=== PATIENT | male | born 1980 | race Caucasian/White ===

== ENCOUNTER 2024-11-22 09:54 | Emergency (ER) | payer BC, SELFPAY ==
--- OUTSIDE RECORDS SUMMARY | 2024-11-22 09:56 | XMS_ITS | Clinical Summary ---
Author Organization [facility] Address [address] [place] [id number] Care Team Providers Care Cable Splicer Assistant Name Role Phone Pcp, No Primary Care Provider Unavailabl e Allergies No known active allergies Medications multivitamin (CHEWABLE MULTI VITAMIN) chew Take 1 tablet by mouth once daily. 0 12/16/2013 Active Active Problems No known active problems Social History Tobacco Use Types Packs/Day Years Used Date Smoking Tobacco: Never Smokeless Tobacco: Never Alcohol Use Standard Drinks/Week Comments Not Asked 0 (1 standard drink = 0.6 oz pur e alcohol) Sex and Gender Information Value Date Recorded Sex Assigned at Not on file Legal Sex Male 1:22 PM CDT Gender Identity Not on file Sexual Orientation Not on file Obstetrics History Last Filed Vital Signs Vital Sign Reading Time Taken Comments Blood Pressure 120/82 12/07/2015 8:12 AM CDT Pulse 64 12/07/2015 8:12 AM CDT Temperature - - Respiratory Rate - - Oxygen Saturation - - Inhaled Oxygen Concentration - - Weight 85.6 kg (188 lb 11.2 oz) 12/07/2015 8:12 AM CDT Height 174.6 cm (5' 8.75) 12/07/2015 8:12 AM CD T Body Mass Index 28.07 12/07/2015 8:12 AM CDT Plan of Treatment Health Maintenance Due Date Last Done Comments Tetanus booster 1993 Depression screening for age 12+ 1994 HIV for age 15-65 1997 Hepatitis C screening for ag e 18-79 2000 Hepatitis B series for 19+ ( 1 of 3 - 19+ 3-dose series) 2001 HPV series for age 9-45 (1 - 3-dose SCDM series) 2009 BMI (ht and wt on same day) for age 18+ 12/06/2016 12/07/2015 Lipids for age 35-44 2017 COVID-19 vaccine series ( season) 2024 Influenza Vaccine (#1) 2024 RSV vaccine for adults or (1 - 1-dose 75+ series) 2057 Pneumococcal series for age 6-49 Aged Out No longer eligible based on patient's age to complete this topic Care Teams Cable Splicer Assistant Relationship Specialty Start Date End Date Pcp, No . PCP - General 11/18/13
[2024-11-22 10:01] VITALS: BP 125/86; PULSE 82; RESP 18; TEMP 36.8; O2SAT 99; BMI 27.5
--- NOTE | 2024-11-22 10:10 | ED_ITS ---
HPI - Skin/Abscess/Foreign Bdy General Date Seen: 11/22/24 Chief complaint: Skin/Abscess/Foreign Body Stated complaint: Cellulitis left elbow, not healing Source: patient Mode of arrival: ambulatory Limitations: no limitations History of Present Illness HPI narrative: Patient is a 43-year-old male presenting to emergency department for cellulitis around his left elbow. He 1st noticed it 5 days ago. Went to urgent care 2 days ago and was started on Keflex. Since then the area of erythema has ground. They were told to be re-evaluated if things are not getting better in a couple days. He denies fevers, chills, joint pain, fatigue. States all the pain seems to be located around the outside of the elbow. Has not noticed any swelling to the elbow. No other concerns noted. Related Data Previous Rx's ?Medication ?Instructions ?Recorded cephalexin 500 mg capsule 500 mg PO QID 7 days #28 cap s 11/20/24 sulfamethoxazole 800 1 tab PO Q12H #10 tabs 11/22 mg-trimethoprim 160 mg tablet (Bactrim DS) Allergies Allergy/AdvReac Type Severity Reaction Status Date / Time No Known Drug Allergies Allergy Verified 11/20/24 12:14 Review of Systems Narrative: Pertinent systems reviewed and were negative unless stated in HPI Exam Narrative: Exam Narrative: Const: Well-nourished, Well-developed, in mild distress Eyes: PERRL, no conjunctival injection, and symmetrical lids HENT: Atraumatic external nose and ears. Moist mucous membranes. MSK:Extremities w/o deformity, Normal Active ROM Skin: Warm, Dry. Area of redness and warmth to the left elbow about 5 cm x 7 cm in size. It is outside the previously drawn circles. Neuro: Normal Muscle tone, No focal neurological deficits. Psych: Awake, Alert, & Oriented x3. Appropriate mood and affect. Const: Vital Signs, click to edit/add: Vital Signs - 24 hr 11/22/24 10:01 Temperature 98.2 F Pulse Rate [Pulse Oximeter] 82 Respiratory Rate 18 Blood Pressure [Ri ght Upper Arm] 125/86 Pulse Oximetry 99 Oxygen Delivery Me thod Room Air Course Vital Signs Vital signs: Initial Vital Signs Temperature 98.2 F 11/22/24 10:01 Temperature Source Temporal Artery Scan 11/22/24 10:01 Pulse Rate 82 11/22/24 10:01 Respiratory Rate 18 11/22/24 10:01 Blood Pressure 125/86 11/22/24 10:01 Blood Pressure Mean 99 11/22/24 10:01 Pulse Oximetry 99 11/22/24 10:01 Oxygen Delivery Method Room Air 11/22/24 10:01 Vital Signs Temperature 98.2 F 11/22/24 10:01 Pulse Rate 82 11/22/24 10:01 Respiratory Rate 18 11/22/24 10:01 Blood Pressure 125/86 11/22/24 10:01 Pulse Oximetry 99 11/22/24 10:01 Oxygen Delivery Method Room Air 11/22/24 10:01 Temperature 98.2 F 11/22/24 10:01 Pulse Rate 82 11/22/24 10:01 Respiratory Rate 18 11/22/24 10:01 Blood Pressure 125/86 11/22/24 10:01 Pulse Oximetry 99 11/22/24 10:01 Oxygen Delivery Method Room Air 11/22/24 10:01 MDM - Skin/Abscess/Foreign Bdy MDM Narrative Medical decision making narrative: Patient is a 43-year-old male presenting for left elbow cellulitis. He has full range motion of the elbow and I do not see any signs of a septic joint. Not showing any signs of septic infection at this time. He is otherwise healthy with no medical conditions. I do not see any signs of septic bursitis either. At this time I do believe he is safe for discharge with Bactrim added on. He is agreeable to this plan. Discharge Plan Discharge Clinical Impression: Cellulitis Qualifiers: Site of cellulitis: extremity Site of cellulitis of extremity: upper extremity Laterality: left Qualified Code(s): L03.114 - Cellulitis of left upper limb Patient Disposition: Home, Self-Care Condition: Stable Instructions: Cellulitis (ED) Additional Instructions: Continue to take the Keflex and start also taking the Bactrim. I recommend calling her primary care provider tomorrow to set up follow-up appointment. Return to emergency department in 2 or 3 days if redness is not improving. If you start developing fevers, fatigue, severe elbow pain or other systemic symptoms return for re-evaluation sooner. Prescriptions: New sulfamethoxazole-trimethoprim [Bactrim DS] 800-160 mg tablet 1 tab PO Q12H Qty: 10 0RF No Action cephalexin 500 mg capsule 500 mg PO QID 7 Days Qty: 28 0RF Follow Up/Referrals: Provider,Not a Local [Primary Care Provider, Family Practice] Stand Alone Forms: [facility] Inst[facility]
== END 2024-11-22 10:29 | disposition home or self-care (01) ==
PROVIDERS: Emergency Provider Student in an Organized Health Care Education/Training Program
DX: L03.114 Cellulitis of left upper limb (principal)
CPT/HCPCS: 99282; 99283